=== PATIENT | male | born 1995 ===

== ENCOUNTER 2024-06-17 13:24 | Emergency (ER) | payer SELFPAY ==
[2024-06-17 13:34] VITALS: BP 145/100; PULSE 70; RESP 18; TEMP 36.6; O2SAT 98
--- NOTE | 2024-06-17 13:40 | ED_ITS ---
HPI - General Adult General: Chief complaint: General Medical Stated complaint: SI Time Seen by Provider: 06/17/24 13:26 Source: EMS Mode of arrival: EMS History of Present Illness: 28-year-old male who is here with police patient is under arrest he has had 2 DWIs today he is intoxicated he is brought here for medical clearance he has no medical complaints at this time. Associated symptoms: Deny chest pain, dyspnea, headache(s), nausea, rash or vomiting Review of Systems Const: Denies: fever(s), chills, body aches or change in appetite ENMT: Denies: throat pain or dental pain Card: Denies: chest pain Resp: Denies: dyspnea GI: Denies: abdominal pain, nausea, vomiting or diarrhea Musc: Denies: neck pain or back pain Skin/Breast: Denies: rash Neuro: Denies: headache(s) Physical Exam Const: OTHER: intoxicated HENMT: COMMON NORMALS: normocephalic and atraumatic HEAD & SCALP: normocephalic and atraumatic Eye: COMMON NORMALS: Equal, round and reactive pupils present and EOMs intact bilaterally PUPIL: Yes Equal, round and reactive pupils present Neck/C-Spine: COMMON NORMALS: full ROM and supple Chest: COMMONS NORMALS: normal inspection of the chest Resp: COMMON NORMALS: normal respiratory effort, No retractions, No use of accessory muscles and clear to auscultation bilaterally AUSCULTATION: clear to auscultation bilaterally Cardio: COMMON NORMALS: regular rate, regular rhythm and No murmurs present (Cardio) RATE: regular rate RHYTHM: regular rhythm GI: COMMON NORMALS: Normal to inspection, nondistended, normoactive bowel sounds present, Soft to palpation, non-tender and no masses PALPATION: Yes Soft to palpation Extremity: COMMON NORMALS: normal to inspection and full ROM Neuro: COMMON NORMALS: moves all extremities and no focal motor deficits Psych: OTHER: intoxicated Skin: COMMON NORMALS: no rashes or lesions noted and no wounds GENERAL SKIN EXAM: no rashes or lesions noted Course Vital Signs: Vital signs: Vital Signs Temperature 97.8 F 06/17/24 13:34 Pulse Rate 70 06/17/24 13:34 Respiratory Rate 18 06/17/24 13:34 Blood Pressure 145/100 06/17/24 13:34 Pulse Oximetry 98 06/17/24 13:34 Oxygen Delivery Me thod Room Air 06/17/24 13:34 MDM - General Adult Medical Decision Making Patient presents here for medical clearance fit for confinement he is under arrest he is well-appearing here he stable for discharge into police custody Medical Records I reviewed the patient's medical records. No radiology studies performed this visit Discharge Plan Discharge Patient Disposition: Home Clinical Impression: Alcohol intoxication, Medical clearance for incarceration Condition: Stable Discharge Orders: Discharge ED (Routine); Ordered 06/17/24 Ordered By: Kendall Rubio Discharge Diet: Advance as tolerated Discharge Activity: Resume usual activity Patient Instructions: Alcohol Intoxication (ED) Activity Restrictions/Additional Instructions: pt is medical cleared and is fit for confinement Coding Level of Care Code ED Eight Section Blower for Dominga Thomson
== END 2024-06-17 14:27 | disposition home or self-care (01) ==
PROVIDERS: Emergency Provider Emergency Medicine
DX: F10.129 Alcohol abuse with intoxication, unspecified
CPT/HCPCS: 99281